=== PATIENT | male | born 1950 | race Two or more races ===

== ENCOUNTER 2020-11-14 10:24 | Outpatient (CLI) | payer OTHER | END 2020-11-14 10:26 | disposition home or self-care (01) | LOC: NUCLEAR 10:24 | PROVIDERS: ATTEND Urology | DX: D16.8 Benign neoplasm of pelvic bones, sacrum and coccyx (principal); R31.0 Gross hematuria; N40.1 Benign prostatic hyperplasia with lower urinary tract symptoms | CPT/HCPCS: 78803; A9503 ==

== ENCOUNTER 2020-11-15 11:07 | Outpatient (CLI) | payer OTHER | END 2020-11-15 11:22 | disposition home or self-care (01) | LOC: LAB 11:07 | PROVIDERS: ATTEND Radiology Diagnostic Radiology | DX: R31.0 Gross hematuria (principal) ==

== ENCOUNTER 2020-11-22 07:09 | Outpatient (CLI) | payer OTHER | END 2020-11-22 07:21 | disposition home or self-care (01) | LOC: MRI 07:09 | PROVIDERS: ATTEND Urology | DX: R31.0 Gross hematuria (principal); N40.1 Benign prostatic hyperplasia with lower urinary tract symptoms | CPT/HCPCS: 74183; A9575; 72197 ==

== ENCOUNTER 2021-09-01 12:50 | Outpatient (CLI) | payer OTHER | END 2021-09-01 12:56 | disposition home or self-care (01) | LOC: SONOGRAMA 12:50 | PROVIDERS: ATTEND Urology | DX: N40.1 Benign prostatic hyperplasia with lower urinary tract symptoms (principal); R31.0 Gross hematuria; R33.8 Other retention of urine ==

== ENCOUNTER 2021-09-06 12:01 | Outpatient (CLI) | payer OTHER | END 2021-09-06 12:02 | disposition home or self-care (01) | LOC: MRI 12:01 | PROVIDERS: ATTEND Physical Medicine & Rehabilitation | DX: M25.551 Pain in right hip (principal); M16.11 Unilateral primary osteoarthritis, right hip; D49.2 Neoplasm of unspecified behavior of bone, soft tissue, and skin | CPT/HCPCS: 73721 ==

== ENCOUNTER 2022-09-05 09:13 | Outpatient (CLI) | payer OTHER | END 2022-09-05 09:21 | disposition home or self-care (01) | LOC: SONOGRAMA 09:13 | PROVIDERS: ATTEND Urology | DX: R31.0 Gross hematuria (principal); N40.1 Benign prostatic hyperplasia with lower urinary tract symptoms ==

== ENCOUNTER 2024-01-31 07:35 | Outpatient (CLI) | payer OTHER ==
[2024-01-31 08:52] LABS: CREATININE SERUM 0.94 mg/dL (0.70-1.30)
== END 2024-01-31 07:37 | disposition home or self-care (01) ==
LOC: LAB 07:35
PROVIDERS: ATTEND Radiology Diagnostic Radiology
DX: R10.30 Lower abdominal pain, unspecified (principal)

== ENCOUNTER 2024-01-31 07:54 | Outpatient (CLI) | payer OTHER | END 2024-01-31 07:55 | disposition home or self-care (01) | LOC: MRI | PROVIDERS: ATTEND Internal Medicine Cardiovascular Disease | DX: M54.50 Low back pain, unspecified (principal) | CPT/HCPCS: 72149 ==

== ENCOUNTER 2024-10-21 08:47 | Outpatient (CLI) | payer OTHER | END 2024-10-21 08:51 | disposition home or self-care (01) | LOC: MRI 08:47 | PROVIDERS: ATTEND Urology | DX: R31.0 Gross hematuria (principal) | CPT/HCPCS: 72197; 74183; Q9965 ==